=== PATIENT | male | born 1945 | race Caucasian/White ===

== ENCOUNTER 2017-04-02 11:31 | Emergency (ER) | payer MEDICARE, OTHER ==
--- NOTE | 2017-04-02 12:40 | ED Physician Documentation ---
History of Present Illness - Stated complaint Stated Complaint: MAHONEY,MALE ,COUGH - Chief complaint Chief Complaint: General - History obtained from History obtained from: Patient, Family - History of Present Illness Pain level max: 2 Pain level now: 1 Improved by: nothing Worsened by: nothing - Additonal information Additional information: Patient is a 71-year-old male who presents to the emergency department with a cough for the past 2-3 weeks. Mostly nonproductive, but occasionally has scant amounts of sputum. Did have subjective fevers last night. Started having burning with urination yesterday. States has had UTIs in the past. Denies any abdominal pain. Review of Systems Constitutional: reports: Fever (subjective). denies: Chills Ears: denies: Ear pain Nose: denies: Rhinorrhea / runny nose, Congestion Cardiac: denies: Chest pain / pressure Respiratory: denies: Cough GI: denies: Abdominal Pain, Nausea, Vomiting, Diarrhea Skin: denies: Rash Musculoskeletal: denies: Neck pain, Back pain Neurologic: denies: Headache PD PAST MEDICAL HISTORY - Past Medical History Past Medical History: Yes Cardiovascular: Hypertension Respiratory: Pneumonia : Kidney stones Musculoskeletal: Gout Other Past Medical History: kidney infection. pneumonia x 5 - Past Surgical History Past Surgical History: Yes - Present Medications Home Medications: Ambulatory Orders Medication Instructions Recorded Confirmed Allopurinol 100 mg DAILY 04/02/17 04/02/17 Atenolol 50 mg DAILY 04/02/17 04/02/17 Cephalexin [Keflex] 500 mg PO Q6H #28 capsule 04/02/17 - Allergies Allergies/Adverse Reactions: Allergies Allergy/AdvReac Type Severity Reaction Status Date / Time Sulfa (Sulfonamide Allergy Rash Verified 04/02/17 11:37 Antibiotics) - Social History Does the pt smoke?: No Smoking Status: Never smoker Does the pt drink ETOH?: No PD ED PE NORMAL - Vitals Vital signs reviewed: Yes - General General: Alert and oriented X 3, No acute distress, Well developed/nourished - HEENT HEENT: PERRL, Ears normal, Moist mucous membranes, Pharynx benign - Neck Neck: Supple, no meningeal sign - Cardiac Cardiac: RRR, Strong equal pulses - Respiratory Respiratory: No respiratory distress, Clear bilaterally - Abdomen Abdomen: Soft, Non tender, Non distended - Back Back: No CVA TTP, No spinal TTP - Derm Derm: Warm and dry, No rash - Neuro Neuro: Alert and oriented X 3 - Psych Psych: Normal mood, Normal affect Results - Vitals Vitals: Vital Signs - 24 hr 04/02/17 04/02/17 11:35 13:30 Temperature 36.2 C L Heart Rate 70 70 Respiratory 18 16 Rate Blood Pressure 171/81 H 143/86 H O2 Saturation 95 95 Oxygen O2 Source Room air - Labs Labs: Laboratory Tests 04/02/17 11:40 Urine Color YELLOW Urine Clarity CLOUDY Urine pH 6.0 Ur Specific Butler 1.015 Urine Protein TRACE Urine Glucose (UA) NEGATIVE Urine Ketones NEGATIVE Urine Occult Blood LARGE H Urine Nitrite POSITIVE H Urine Bilirubin NEGATIVE Urine Urobilinogen 0.2 (NORMAL) Ur Leukocyte Esterase MODERATE H Urine RBC 11-25 H Urine WBC >25 H Ur Squamous Epith Cells RARE Squamous Urine Bacteria Many H Ur Microscopic Review INDICATED Urine Culture Comments INDICATED - Rads (name of study) cxr Radiology: Prelim report reviewed, EMP read contemporaneously, See rad report ( No acute disease in the chest. Nodular density projected in the left lower lung , probable nipple shadow, shape and position of rib and vessel versus parenchymal nodule. Once patient's acute clinical symptoms have improved follow- up radiographs with nipple markers recommended. ) PD MEDICAL DECISION MAKING - ED course Complexity details: reviewed results, re-evaluated patient, considered differential, d/w patient, d/w family ED course: Patient is a 71-year-old male who presents to the emergency department with viral URI symptoms that appear complicated by a urinary tract infection. This is not uncommon for him. He is well-appearing, nontoxic. Afebrile. No evidence of pyelonephritis. He has allergic to sulfa, so will not use Bactrim. Because of multiple black box warnings now attached to the fluoroquinolones, we will trial him on Keflex and see if this aids his symptoms. He will return if he is not improving in the next 2-3 days. He will return sooner if he worsens. Patient and family counseled regarding signs and symptoms for which I believe and urgent re-evaluation would be necessary. Patient with good understanding of and agreement to plan and is comfortable going home at this time This document was made in part using voice recognition software. While efforts are made to proofread this document, sound alike and grammatical errors may occur. Departure - Departure Disposition: 01 Home, Self Care Clinical Impression: Viral URI UTI (urinary tract infection) Qualifiers: Urinary tract infection type: acute cystitis Hematuria presence: without hematuria Qualified Code(s): N30.00 - Acute cystitis without hematuria Condition: Good Instructions: ED UTI Cystitis Male, ED URI Viral Follow-Up: your,doctor in 1 week [Other] Prescriptions: Cephalexin [Keflex] 500 mg PO Q6H #28 capsule Comments: Take all antibiotics until gone. Return if you worsen. Discharge Date/Time: 04/02/17 13:35
[2017-04-02 12:47] LABS: BILIRUBIN,URINE NEGATIVE (NEGATIVE)
[2017-04-02 12:54] LABS: UA w/ MICROSCOPIC CHARGE YES
--- NOTE | 2017-04-02 13:01 | XRAY Report ---
EXAM: CHEST RADIOGRAPHY EXAM DATE: 04/02/2017 12:50 PM. CLINICAL HISTORY: Cough, fever. COMPARISON: None. TECHNIQUE: 2 views. FINDINGS: Lungs/Pleura: No consolidation. No vascular congestion. No pneumothorax. No pleural effusions. Nodula r density projects over the left lower lung along the left anterior sixth rib. Mediastinum: Heart size is normal. Aorta is tortuous. Other: Degenerative changes of the thoracic spine. IMPRESSION: 1. No acute disease in the chest. 2. Nodular density projected in the left lower lung, probable nipple shadow, shape and position of ri b and vessel versus parenchymal nodule. Once patient's acute clinical symptoms have improved follow-u p radiographs with nipple markers recommended. [facility] Referring Provider Line: [phone] SITE ID: [id number]
[2017-04-02] MEDS ORDERED: cefTRIAXone 1 GM VIAL IM STA (13:06)
[2017-04-02] MEDS ORDERED: cefTRIAXone 1 GM VIAL ONE (13:11)
[2017-04-02 13:12] LABS: UR CULTURE IF IND INDICATED; WBC,URINE >25 /HPF (0-3)
[2017-04-02] MEDS ORDERED: LIDOCAINE 1% 2 ML VIAL ONE (13:12)
[2017-04-02 13:32] VITALS: BP 143/86
== END 2017-04-02 13:35 | disposition home or self-care (01) ==
LOC: ED 11:31
DX: J06.9 Acute upper respiratory infection, unspecified (principal); B97.89 Other viral agents as the cause of diseases classified elsewhere; N30.00 Acute cystitis without hematuria; I10 Essential (primary) hypertension; Z87.442 Personal history of urinary calculi; M10.9 Gout, unspecified
CPT/HCPCS: 71020; 81001; 81003; 87077; 87086; 96372; 99283

== ENCOUNTER 2021-04-01 08:00 | Outpatient (CLI) | payer MEDICARE, OTHER ==
[2021-04-01 16:28] LABS: BILIRUBIN,URINE NEGATIVE (NEGATIVE); GLUCOSE, URINE (UA) NEGATIVE (NEGATIVE); KETONES,URINE (UA) 15 mg/dL (NEGATIVE); LEUKOCYTE ESTERASE, URINE MODERATE (NEGATIVE); NITRITE,URINE POSITIVE (NEGATIVE); OCCULT BLOOD,URINE MODERATE (NEGATIVE); PROTEIN,URINE 100 mg/dL (NEGATIVE); UROBILINOGEN,URINE 0.2 (NORMAL) E.U./dL (NORMAL)
[2021-04-01 16:34] LABS: CLARITY,URINE SL. CLOUDY (CLEAR)
[2021-04-01 16:38] LABS: BACTERIA,URINE Many /HPF (None Seen); SQUAMOUS EPITHELIAL CELL,UR FEW Squamous (<= Few); WBC,URINE >25 /HPF (0-3)
== END 2021-04-01 23:59 | disposition home or self-care (01) ==
LOC: LAB.S 08:00
PROVIDERS: ATTEND Emergency Medicine
DX: N39.0 Urinary tract infection, site not specified (principal)
CPT/HCPCS: 81001; 87077; 87086; 87181

== ENCOUNTER 2021-05-10 13:05 | Outpatient (CLI) | payer MEDICARE ==
[2021-05-10 20:02] LABS: BILIRUBIN,URINE NEGATIVE (NEGATIVE); GLUCOSE, URINE (UA) NEGATIVE (NEGATIVE); KETONES,URINE (UA) TRACE mg/dL (NEGATIVE); LEUKOCYTE ESTERASE, URINE LARGE (NEGATIVE); NITRITE,URINE POSITIVE (NEGATIVE); OCCULT BLOOD,URINE SMALL (NEGATIVE); PROTEIN,URINE NEGATIVE (NEGATIVE); UROBILINOGEN,URINE 0.2 (NORMAL) E.U./dL (NORMAL)
[2021-05-10 20:03] LABS: CLARITY,URINE CLOUDY (CLEAR)
[2021-05-10 20:35] LABS: BACTERIA,URINE Many /HPF (None Seen); SQUAMOUS EPITHELIAL CELL,UR NONE SEEN (<= Few); WBC,URINE >25 /HPF (0-3)
== END 2021-05-10 23:59 | disposition home or self-care (01) ==
LOC: LAB.S 13:05
PROVIDERS: ATTEND Emergency Medicine
DX: R30.0 Dysuria (principal)
CPT/HCPCS: 81001; 87086

== ENCOUNTER 2022-01-27 08:00 | Outpatient (CLI) | payer MEDICARE ==
[2022-01-27 14:14] LABS: CALCIUM 9.6 mg/dL (8.5-10.3); POTASSIUM 4.4 mmol/L (3.5-5.0)
[2022-01-27 14:43] LABS: CREATININE 1.5 mg/dL (0.6-1.2)
== END 2022-01-27 23:59 | disposition home or self-care (01) ==
LOC: LAB.S 08:00
PROVIDERS: ATTEND Physician Assistant
DX: N39.0 Urinary tract infection, site not specified (principal); N28.9 Disorder of kidney and ureter, unspecified
CPT/HCPCS: 36415; 80048; 87077; 87086; 87181

== ENCOUNTER 2022-04-02 08:00 | Outpatient (CLI) | payer MEDICARE | END 2022-04-02 23:59 | disposition home or self-care (01) | LOC: LAB.S 08:00 | PROVIDERS: ATTEND Physician Assistant | DX: N39.0 Urinary tract infection, site not specified (principal) | CPT/HCPCS: 87086; 87181 ==

== ENCOUNTER 2022-08-12 09:12 | Outpatient (CLI) | payer MEDICARE ==
--- NOTE | 2022-08-12 11:11 | CT Report ---
PROCEDURE: ABDOMEN/PELVIS WO INDICATIONS: RECURRENT UTI TECHNIQUE: Noncontrast 5 mm thick sections acquired from the diaphragms to the symphysis. 5 mm coronal and sagi ttal reformats were then performed. For radiation dose reduction, the following was used: automated exposure control, adjustment of mA and/or kV according to patient size. COMPARISON: None. FINDINGS: Image quality: Excellent. ABDOMEN: Lung bases: Lung bases are clear. Heart size is normal. Probable sebaceous cyst at the midline in t he mid back measuring 1.4 cm, (3/1), partially visualized. Small hiatal hernia. Solid organs: Liver and spleen are normal in size. Subtle hypodensity in the right lobe of the liver measuring 2.1 cm, (3/35). This is not well evaluated on this noncontrast exam. There is a benign cys t in the right lobe of the liver, (3/29). Gallbladder is not distended. Pancreas is normal in contou rs. No adrenal nodules. Kidneys are normal in size, without hydronephrosis. Left peripelvic cysts. Suspect small exophytic cy st at the superior pole and inferior pole of the left kidney. Multiple nonobstructing kidney stones b ilaterally. There are also cortical calcifications and renal parenchymal thinning. It is difficult to discern which calcifications are in the collecting system and which are in the cortex. In the right kidney stone is suspected measuring 1.2 cm. In the left kidney a stone is suspected measuring 0.8 cm. 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 Peritoneum and bowel: Unenhanced bowel loops demonstrate normal wall thickness and caliber. Divertic ulosis. Normal appendix. No free fluid or air. Nodes and vessels: No retroperitoneal or mesenteric adenopathy by size criteria. . Minimal ectasia of the abdominal aorta. Atherosclerotic plaque. Miscellaneous: Small local hernia. PELVIS: Genitourinary: Bladder is within normal limits. Prominent prostate gland. Left hydrocele. Miscellaneous: No adenopathy. Fat-containing inguinal hernias. Left lower abdominal wall small herni a. Bones: No suspicious bony lesions. No vertebral body compression fractures. IMPRESSION: 1. Bilateral renal scarring with cortical calcifications. 2. Bilateral nonobstructing kidney stones. 3. Suspect subtle hypodensity in the right lobe of liver. This could represent a hemangioma. This is not well characterized on this exam. -Consider multiphase liver CT or MRI for further evaluation. 4. Diverticulosis. No diverticulitis. Reviewed by: Isidro Harvey MD on 08/12/2022 11:10 AM [facility] Approved by: Isidro Harvey MD on 08/12/2022 11:10 AM [facility] Station ID: [id number]
== END 2022-08-12 09:13 | disposition home or self-care (01) ==
LOC: DI 09:12
PROVIDERS: ATTEND Urology
DX: N20.0 Calculus of kidney (principal); K57.30 Diverticulosis of large intestine without perforation or abscess without bleeding; N39.0 Urinary tract infection, site not specified

== ENCOUNTER 2022-10-15 08:00 | Outpatient (CLI) | payer MEDICARE | END 2022-10-15 23:59 | disposition home or self-care (01) | LOC: LAB.S 08:00 | PROVIDERS: ATTEND Physician Assistant | DX: N12 Tubulo-interstitial nephritis, not specified as acute or chronic (principal) | CPT/HCPCS: 87086; 87181 ==

== ENCOUNTER 2022-11-08 07:00 | Outpatient (CLI) | payer MEDICARE | END 2022-11-08 23:59 | disposition home or self-care (01) | LOC: LAB.S 07:00 | PROVIDERS: ATTEND Physician Assistant | DX: N12 Tubulo-interstitial nephritis, not specified as acute or chronic (principal) | CPT/HCPCS: 87086; 87181 ==

== ENCOUNTER 2022-12-08 08:55 | Outpatient (CLI) | payer MEDICARE | END 2022-12-08 08:56 | disposition home or self-care (01) | LOC: LAB.S 08:55 | PROVIDERS: ATTEND Physician Assistant Surgical | DX: N39.0 Urinary tract infection, site not specified (principal) | CPT/HCPCS: 87086 ==

== ENCOUNTER 2022-12-20 08:00 | Outpatient (CLI) | payer MEDICARE | END 2022-12-20 23:59 | disposition home or self-care (01) | LOC: LAB.R 08:00 → LAB.S 23:59 | PROVIDERS: ATTEND Physician Assistant | DX: N39.0 Urinary tract infection, site not specified (principal) | CPT/HCPCS: 87077; 87086; 87181 ==

== ENCOUNTER 2022-12-29 19:36 | Outpatient (CLI) | payer MEDICARE ==
--- NOTE | 2022-12-30 09:53 | Ultrasound Report ---
PROCEDURE: Retroperitoneal INDICATIONS: NEPHROLITHIASIS TECHNIQUE: Real-time scanning was performed of the retroperitoneal organs, with image documentation. COMPARISON: None. FINDINGS: Kidneys: Kidneys are normal in size. Right kidney measures 10.9 cm long; left kidney measures 12.7 cm long. Right renal cortical thickness is 1.6 cm; left renal cortical thickness is 1.7 cm. Multiple renal stones, largest measuring 2.4 cm in the right kidney and 1.2 cm and the left kidney. No hydron ephrosis. Left-sided nephroureteral stent present. Bladder: Pre-void bladder volume is 161 mL. Post-void residual is 75 mL. Pre-void images demonstra te no intraluminal masses or stones. On pre-void images, the right ureteral jets are noted with colo r Doppler interrogation. (Of note, ureteral jets may not be detectable in up to 25% of cases due to insufficient differences in specific gravity between ureteral and bladder urine). Left-sided nephrou reteral stent visualized within the bladder. Miscellaneous: No free abdominal fluid. IMPRESSION: Left-sided ureteral stent, without hydronephrosis. Bilateral renal stones, as above. Increased renal cortical echogenicity, suggestive of chronic parenchymal disease. Reviewed by: Nikolai Sr on 12/30/2022 9:52 AM PDT Approved by: Nikolai Sr on 12/30/2022 9:52 AM PDT Station ID: [id number]
== END 2022-12-29 19:37 | disposition home or self-care (01) ==
LOC: DI 19:36
PROVIDERS: ATTEND Physician Assistant Surgical
DX: N20.0 Calculus of kidney (principal); Z96.0 Presence of urogenital implants

== ENCOUNTER 2023-01-10 11:43 | Outpatient (CLI) | payer MEDICARE | END 2023-01-10 11:44 | disposition home or self-care (01) | LOC: LAB.S 11:43 | DX: N20.0 Calculus of kidney (principal) | CPT/HCPCS: 87086; 87181 ==

== ENCOUNTER 2023-02-07 18:20 | Emergency (ER) | payer MEDICARE ==
--- OUTSIDE RECORDS SUMMARY | 2023-02-07 18:31 | EXTERNAL MEDICAL SUMMARY RPT | Continuity of Care Document ---
Author Name Unknown Address [address] [place] [address] Phone Organization [facility] Address [address] [place] [address] Phone Care Team Providers [facility] Consultant Name Role Phone Unavailable Unavailable Unavailable Bill Ch Pa-C Unavailable Unavailable Sue Patient Registrar, Marlin Unavailable Unavailable Medications date description facility 2022-11-09 00:00 [facility] [place] 2022-11-11 00:00 [facility] 2022-12-20 00:00 [facility] 2022-12-20 00:00 [facility] [place] 2022-12-21 00:00 [facility] 2022-12-23 00:00 [facility] 2022-12-24 00:00 [facility] 2022-12-20 00:00 [facility] [place] 2022-12-20 00:00 [facility] [place] 2022-11-09 00:00 [facility] 2022-11-11 00:00 [facility] 2022-12-20 00:00 [facility] 2022-12-20 00:00 [facility] 2022-12-21 00:00 [facility] [place] 2022-12-23 00:00 [facility] [place] 2022-12-24 00[facility]00 [facility] [place] 2022-11-09 00:00 [facility] 2022-11-11 00:00 [facility] [place] 2022-12-20 00[facility]00 [facility] [place] 2022-12-20 00:00 [facility] [place] 2022-12-21 00:00 [facility] [place] 2022-12-23 00:00 [facility] [place] 2022-12-24 00:00 [facility] [place] 2022-12-20 00:00 [facility] [place] 2022-11-09 00[facility]00 [facility] [place] 2022-11-11 00:00 [facility] [place] 2022-12-20 00:00 [facility] [place] 2022-12-20 00:00 [facility] [place] 2022-12-21 00:00 [facility] [place] 2022-12-23 00:00 [facility] [place] 2022-12-24 00:00 [facility] [place] 2022-11-09 00:00 [facility] [place] 2022-11-11 00:00 [facility] [place] 2022-12-20 00:00 [facility] [place] 2022-12-20 00:00 [facility] [place] 2022-12-21 00:00 [facility] [place] 2022-12-23 00:00 [facility] [place] 2022-12-24 00:00 [facility] [place] 2022-11-09 00:00 [facility] [place] 2022-11-11 00:00 [facility] [place] 2022-12-20 00:00 [facility] [place] 2022-12-20 00:00 [facility] [place] 2022-12-21 00:00 [facility] [place] 2022-12-23 00:00 [facility] [place] 2022-12-24 00:00 [facility] [place] 2022-12-20 00:00 [facility] [place] 2022-11-09 00:00 [facility] [place] 2022-11-11 00:00 [facility] [place] 2022-12-20 00:00 [facility] [place] 2022-12-20 00:00 [facility] [place] 2022-12-21 00:00 [facility] [place] 2022-12-23 00:00 [facility] [place] 2022-12-24 00:00 [facility] [place] 2022-11-09 00:00 [facility] [place] 2022-11-11 00:00 [facility] [place] 2022-12-20 00:00 [facility] [place] 2022-12-20 00:00 [facility] [place] 2022-12-21 00:00 [facility] [place] 2022-12-23 00:00 [facility] [place] 2022-12-24 00:00 [facility] Procedures date description facility 2022-12-20 00:00 Visit Code Hold [facility] 2022-12-20 00:00 POC URINALYSIS DIP [facility] Results/Labs test date author facility value unit interpretation Result panel 1 (unknown) (no date) (unknown) [facility] (no value) (units unknown) (unknown) Result panel 2 (unknown) (no date) (unknown) [facility] (no value) (units unknown) (unknown) Result panel 3 (unknown) (no date) (unknown) [facility] (no value) (units unknown) (unknown) Result panel 4 (unknown) (no date) (unknown) [facility] (no value) (units unknown) (unknown) Result panel 5 (unknown) (no date) (unknown) [facility] (no value) (units unknown) (unknown) Result panel 6 (unknown) (no date) (unknown) [facility] (no value) (units unknown) (unknown) Result panel 7 (unknown) (no date) (unknown) [facility] (no value) (units unknown) (unknown) Result panel 8 (unknown) (no date) (unknown) [facility] (no value) (units unknown) (unknown) Result panel 9 (unknown) (no date) (unknown) [facility] [place] (no value) (units unknown) (unknown) Result panel 10 (unknown) (no date) (unknown) [facility] (no value) (units unknown) (unknown) Result panel 11 (unknown) (no date) (unknown) [facility] (no value) (units unknown) (unknown) Result panel 12 (unknown) (no date) (unknown) [facility] (no value) (units unknown) (unknown) Result panel 13 (unknown) (no date) (unknown) [facility] (no value) (units unknown) (unknown) Result panel 14 (unknown) (no date) (unknown) [facility] (no value) (units unknown) (unknown) Result panel 15 (unknown) (no date) (unknown) [facility] (no value) (units unknown) (unknown) Result panel 16 (unknown) (no date) (unknown) [facility] (no value) (units unknown) (unknown) Result panel 17 (unknown) (no date) (unknown) [facility] (no value) (units unknown) (unknown) Result panel 18 (unknown) (no date) (unknown) [facility] (no value) (units unknown) (unknown) Result panel 19 (unknown) (no date) (unknown) [facility] (no value) (units unknown) (unknown) Result panel 20 (unknown) (no date) (unknown) [facility] (no value) (units unknown) (unknown) Result panel 21 (unknown) (no date) (unknown) [facility] (no value) (units unknown) (unknown) Result panel 22 (unknown) (no date) (unknown) [facility] (no value) (units unknown) (unknown) Result panel 23 (unknown) (no date) (unknown) [facility] (no value) (units unknown) (unknown) Result panel 24 (unknown) (no date) (unknown) [facility] (no value) (units unknown) (unknown) Result panel 25 (unknown) (no date) (unknown) [facility] (no value) (units unknown) (unknown) Result panel 26 (unknown) (no date) (unknown) [facility] (no value) (units unknown) (unknown) Result panel 27 (unknown) (no date) (unknown) [facility] (no value) (units unknown) (unknown) Result panel 28 (unknown) (no date) (unknown) [facility] (no value) (units unknown) (unknown) Result panel 29 (unknown) (no date) (unknown) [facility] (no value) (units unknown) (unknown) Result panel 30 (unknown) (no date) (unknown) [facility] (no value) (units unknown) (unknown) Result panel 31 (unknown) (no date) (unknown) [facility] (no value) (units unknown) (unknown) Result panel 32 (unknown) (no date) (unknown) [facility] (no value) (units unknown) (unknown) Result panel 33 (unknown) (no date) (unknown) [facility] (no value) (units unknown) (unknown) Result panel 34 (unknown) (no date) (unknown) [facility] (no value) (units unknown) (unknown) Result panel 35 (unknown) (no date) (unknown) [facility] (no value) (units unknown) (unknown) Result panel 36 (unknown) (no date) (unknown) [facility] (no value) (units unknown) (unknown) Result panel 37 (unknown) (no date) (unknown) [facility] (no value) (units unknown) (unknown) Result panel 38 (unknown) (no date) (unknown) [facility] (no value) (units unknown) (unknown) Result panel 39 (unknown) (no date) (unknown) [facility] (no value) (units unknown) (unknown) Result panel 40 (unknown) (no date) (unknown) [facility] (no value) (units unknown) (unknown) Result panel 41 (unknown) (no date) (unknown) [facility] (no value) (units unknown) (unknown) Result panel 42 (unknown) (no date) (unknown) [facility] (no value) (units unknown) (unknown) Result panel 43 (unknown) (no date) (unknown) [facility] (no value) (units unknown) (unknown) Result panel 44 (unknown) (no date) (unknown) [facility] (no value) (units unknown) (unknown) Result panel 45 (unknown) (no date) (unknown) [facility] (no value) (units unknown) (unknown) Result panel 46 (unknown) (no date) (unknown) [facility] (no value) (units unknown) (unknown) Result panel 47 (unknown) (no date) (unknown) [facility] (no value) (units unknown) (unknown) Result panel 48 (unknown) (no date) (unknown) [facility] (no value) (units unknown) (unknown) Social History date description facility 2022-12-20 00:00 Never smoker [facility] Vital Signs date measurement value units 2022-12-20 00:00 BMI 36.72 kg/m2 2022-12-20 00:00 BP_diastolic 79 mmHg 2022-12-20 00:00 BP_systolic 140 mmHg 2022-12-20 00:00 heart_rate 67 /min 2022-12-20 00:00 height_metric 177.8 cm 2022-12-20 00:00 height_standard 70 in 2022-12-20 00:00 respiration_rate 16 /min 2022-12-20 00:00 temperature_metric 36.67 C 2022-12-20 00:00 temperature_standard 98 F 2022-12-20 00:00 weight_metric 115.67 kg 2022-12-20 00:00 weight_standard 255 lb
[2023-02-07 19:56] LABS: CALCIUM 9.4 mg/dL (8.5-10.3); CREATININE 1.5 mg/dL (0.6-1.2); POTASSIUM 4.2 mmol/L (3.5-5.0)
--- NOTE | 2023-02-07 20:06 | ED Physician Documentation ---
History of Present Illness - Stated complaint Stated Complaint: HIGH BP - Chief complaint Chief Complaint: Cardiac - History obtained from History obtained from: Patient, Family - History of Present Illness Pain level max: 1 Pain level now: 0 - Additonal information Additional information: Patient is a 77-year-old male who comes into the emergency department complaining of high blood pressure over the past several days. Brought in by his family. He is on atenolol for hypertension at home. They state that his heart rate did drop into the upper 40s, lowest they saw was around 47. Patient was asymptomatic at that time. He had a mild headache a few days ago, rated as a 1 out of 10 states feels like his typical tension headache. No chest pain. No shortness of breath. He had a recent lithotripsy with ureteral stent placed. His blood pressure is around 170 systolic at home, they called the nurse advice line who directed him here for evaluation. Patient is currently fully asymptomatic. Review of Systems Constitutional: denies: Fever, Chills Respiratory: denies: Cough GI: denies: Abdominal Pain, Vomiting, Diarrhea : denies: Dysuria Skin: denies: Rash Musculoskeletal: denies: Neck pain, Back pain Neurologic: denies: Syncope, Seizure, Confused PD PAST MEDICAL HISTORY - Past Medical History Cardiovascular: Hypertension Respiratory: Pneumonia : Kidney stones Musculoskeletal: Gout - Past Surgical History Past Surgical History: Yes - Present Medications Home Medications: Ambulatory Orders Medication Instructions Recorded Confirmed allopurinoL [Allopurinol] 100 mg DAILY 04/02/17 02/07/23 atenoloL [Atenolol] 50 mg DAILY 04/02/17 02/07/23 cephALEXin [Keflex] 500 mg PO Q6H #28 capsule 04/02/17 Alfuzosin HCl [Alfuzosin HCl ER] 10 mg PO DAILY 02/07/23 02/07/23 Finasteride [Proscar] 5 mg PO DAILY 02/07/23 02/07/23 - Allergies Allergies/Adverse Reactions: Allergies Allergy/AdvReac Type Severity Reaction Status Date / Time Sulfa (Sulfonamide Allergy Rash Verified 02/07/23 18:24 Antibiotics) - Social History Does the pt smoke?: No Smoking Status: Never smoker Does the pt drink ETOH?: No PD ED PE NORMAL - Vitals Vital signs reviewed: Yes - General General: Alert and oriented X 3, No acute distress - HEENT HEENT: Moist mucous membranes - Neck Neck: Supple, no meningeal sign - Cardiac Cardiac: RRR, Strong equal pulses - Respiratory Respiratory: No respiratory distress, Clear bilaterally - Abdomen Abdomen: Soft, Non tender, Non distended - Back Back: No CVA TTP, No spinal TTP - Derm Derm: Warm and dry - Extremities Extremities: No edema, No calf tenderness / cord - Neuro Neuro: Alert and oriented X 3 - Psych Psych: Normal mood, Normal affect Results - Vitals Vitals: Vital Signs - 24 hr 02/07/23 02/07/23 02/07/23 18:24 18:47 21:18 Temperature 36.5 C Heart Rate 55 L 58 L 53 L Respiratory 16 16 14 Rate Blood Pressure 180/88 H 194/89 H 193/96 H O2 Saturation 97 98 100 Oxygen O2 Source Room air - EKG (time done) 1954 EKG releavant findings:: EKG personally interpreted by author of this note. Relevant findings are: Rate: Rate (enter#) (51) Rhythm: NSR Intervals: LBBB - Labs Labs: Laboratory Tests 02/07/23 02/07/23 19:42 19:42 WBC 9.3 RBC 4.61 L Hgb 15.3 Hct 46.6 MCV 101.1 H MCH 33.2 H MCHC 32.8 RDW 14.5 Plt Count 153 MPV 12.1 H Neut # (Auto) 6.3 Lymph # (Auto) 1.8 Leon # (Auto) 0.9 Eos # (Auto) 0.2 Baso # (Auto) 0.0 Absolute Nucleated RBC 0.00 Nucleated RBC % 0.0 Sodium 142 Potassium 4.2 Chloride 108 Carbon Dioxide 29 Anion Gap 5.0 L BUN 24 H Creatinine 1.5 H Estimated GFR (MDRD) 45 L Glucose 98 Calcium 9.4 PD Medical Decision Making - ED course Complexity details: reviewed results, re-evaluated patient, considered differential, d/w patient, d/w family ED course: Upon review of the patient's chart, his systolic blood pressures have been up to the 170s in the emergency department before. Heart rate is usually in the 50s, likely secondary to his atenolol. He is fully asymptomatic here. In accordance with the [facility] clinical policy from October 2012, this patient has asymptomatic elevated blood pressure without evidence of acute target organ injury. There are also no signs of acute stroke, cardiac ischemia, pulmonary edema, encephalopathy or acute congestive heart failure. Therefore the patient will be referred to their primary care provider for follow-up of their asymptomatic hypertension. His EKG and laboratory testing are normal as well. We discussed adjusting his medication, but he prefers to have his doctor do this at home. He will follow-up with his doctor tomorrow to discuss his blood pressure. Patient does not have any significant headache. No neurological deficits. No chest pain. No shortness of breath. Patient and family counseled regarding signs and symptoms for which I believe and urgent re-evaluation would be necessary. Patient with good understanding of and agreement to plan and is comfortable going home at this time This document was made in part using voice recognition software. While efforts are made to proofread this document, sound alike and grammatical errors may occur. Departure - Departure Disposition: 01 Home, Self Care Clinical Impression: Hypertension Qualifiers: Hypertension type: unspecified Qualified Code(s): I10 - Essential (primary) hypertension Condition: Good Instructions: ED HTN Established Follow-Up: Your,doctor in 1 week [Other] Comments: Please follow-up with your doctor for further care. Please continue your m edications at home. As we discussed your heart rate is usually in the 50s when you are in the clinic. Your blood pressure is higher than usual. This should be followed up by your doctor for further care. We did discuss adjusting your medications, but I think it is reasonable to allow your doctor to do this as well. Please return for severe headaches, chest pain, shortness of breath or any other new or worrisome symptoms. Discharge Date/Time: 02/07/23 21:49
[2023-02-07 21:21] VITALS: BP 193/96
[2023-02-07 21:34] LABS: BASOPHILS % (AUTO) 0.4 %; EOSINOPHILS # (AUTO) 0.2 10^3/uL (0.0-0.7); EOSINOPHILS % (AUTO) 1.7 %; HCT - HEMATOCRIT 46.6 % (42.0-52.0); HGB - HEMOGLOBIN 15.3 g/dL (14.0-18.0); LYMPHOCYTES # (AUTO) 1.8 10^3/uL (1.5-3.5); LYMPHOCYTES % (AUTO) 19.6 %; MEAN CORPUSCULAR HEMOGLOBIN 33.2 pg (27.0-31.0); MEAN CORPUSCULAR HGB CONC 32.8 g/dL (32.0-36.0); MEAN CORPUSCULAR VOLUME 101.1 fL (80.0-94.0); MEAN PLATELET VOLUME 12.1 fL (7.4-11.4); MONOCYTES # (AUTO) 0.9 10^3/uL (0.0-1.0); NEUTROPHILS # (AUTO) 6.3 10^3/uL (1.5-6.6); NEUTROPHILS % (AUTO) 67.7 %; PLT - PLATELET COUNT 153 10^3/uL (130-450); RED BLOOD COUNT 4.61 10^6/uL (4.70-6.10); RED CELL DISTRIBUTION WIDTH 14.5 % (12.0-15.0); WHITE BLOOD COUNT 9.3 x10^3/uL (4.8-10.8)
== END 2023-02-07 21:49 | disposition home or self-care (01) ==
LOC: ED 18:20
DX: I10 Essential (primary) hypertension (principal); Z79.899 Other long term (current) drug therapy
CPT/HCPCS: 36415; 80048; 85025; 93005; 99283; 99284

== ENCOUNTER 2024-02-26 14:12 | Outpatient (CLI) | payer MEDICARE ==
--- NOTE | 2024-02-27 20:40 | Ultrasound Report ---
PROCEDURE: Testicle INDICATIONS: HYDROCELE TECHNIQUE: Real-time scanning was performed of the scrotum and testicles, with image documentation. Color and p ulse Doppler interrogation was performed of both testicles. COMPARISON: None. FINDINGS: Right: Testicle is normal in size at 4.5 x 1.4 x 2.7 cm, and homogenous in echotexture. Epididymal c yst measures 7 x 8 x 8 mm. Large hydrocele. No varicoceles. Overlying scrotal skin is normal in [facility]. Left: Testicle is normal in size at 3.9 x 1.7 x 1.5 cm, and homogeneous in echotexture. Epididymal c yst measures 11 x 10 x 6 mm. Large hydrocele. No varicoceles. Overlying scrotal skin is normal in [facility]. Doppler: Color and pulse Doppler demonstrate normal and symmetric arterial flow in both testicles. IMPRESSION: Large midline hydrocele involving both left and right side. Reviewed by: China Pitts MD on 02/27/2024 8:39 PM PDT Approved by: China Pitts MD on 02/27/2024 8:39 PM PDT Station ID: [id number]
== END 2024-02-26 14:13 | disposition home or self-care (01) ==
LOC: DI 14:12
PROVIDERS: ATTEND Urology
DX: N43.3 Hydrocele, unspecified (principal)